=== PATIENT | male | born 1970 | race Caucasian/White ===

== ENCOUNTER 2019-10-16 08:34 | Emergency (ER) | payer BC ==
[2019-10-16 09:22] VITALS: BP 127/81
--- NOTE | 2019-10-16 09:27 | UC ---
Skin Complaint HPI - HPI Summary HPI Summary: 49-year-old male who sustained a minor cat the patient Bite to his right wrist and a scratch to the right shoulder this morning from his own cat. The cat is up-to-date on immunizations, the patient is up-to-date on his tetanus immunization. He stated he was trying to get the cat in a carrier to go to the clinical laboratory technician today. The patient cleansed the wound this morning. - History of Current Complaint Chief Complaint: UCSkin Time Seen by Provider: 10/16/19 08:43 Stated Complaint: CAT BITE, RT WRIST Hx Obtained From: Patient Onset/Duration: Sudden Onset Skin Exposure Onset/Duration: Hours Ago Timing: Constant Onset Severity: Mild Current Severity: Mild Pain Intensity: 1 Location: Hand (Right) Aggravating Factor(s): Nothing Alleviating Factor(s): Nothing Associated Signs & Symptoms: Positive: Negative - Allergy/Home Medications Allergies/Adverse Reactions: Allergies Allergy/AdvReac Type Severity Reaction Status Date / Time Penicillins Allergy Anaphylatic Verified 10/16/19 09:23 Shock Home Medications: Home Medications Ibuprofen TAB* [Motrin TAB* 800 MG] 800 mg PO ONCE PRN 10/16/19 [History Confirmed 10/16/19] PMH/Surg Hx/FS Hx/Imm Hx Previously Healthy: Yes - Surgical History Surgical History: None Surgery Procedure, Year, and Place: DENIES - Family History Known Family History: Positive: Non-Contributory - Social History Lives: With Family Alcohol Use: None Substance Use Type: None Smoking Status (MU): Never Smoked Tobacco - Immunization History Most Recent Tetanus Shot: UNKNOWN Review of Systems All Other Systems Reviewed And Are Negative: Yes Skin: Positive: Other - Small puncture wound to right wrist and small scratch to right shoulder Is Patient Immunocompromised?: No Physical Exam Triage Information Reviewed: Yes Appearance: Well-Appearing, No Pain Distress, Well-Nourished Vital Signs: Initial Vital Signs Temp 98.2 F 10/16/19 09:11 Pulse 60 10/16/19 09:11 Resp 18 10/16/19 09:11 BP 127/81 10/16/19 09:11 Pulse Ox 100 10/16/19 09:11 Vital Signs Reviewed: Yes Musculoskeletal: Positive: Strength Intact, ROM Intact, Other: - Good peripheral pulses, neuro sensation capillary refill, good finger strength to flexion extension against resistance. Neurological Exam: Normal Neurological: Positive: Alert, Muscle Tone Normal Psychological Exam: Normal Skin: Positive: Other - Patient has a small puncture wound to the ulnar side of his right wrist palmar aspect. He has a small scratch to his right shoulder. There is no erythema, bruising, swelling or deformity. No pus drainage. Course/Dx - Course Course Of Treatment: The patient is comfortable here. He washed the wound well this morning when it occurred at 7:30 and also put hydrogen peroxide there. Because he is allergic to penicillins he is going to be started on Bactrim and clindamycin. He is to watch for signs of infection. - Diagnoses Provider Diagnosis: Cat bite of hand Discharge ED - Sign-Out/Discharge Documenting (check all that apply): Patient Departure All imaging exams completed and their final reports reviewed: No Studies - Discharge Plan Condition: Good Disposition: HOME Prescriptions: Clindamycin Cap(NF) [Clindamycin Cap 300 mg Cap(NF)] 300 mg PO TID 7 Days #21 cap Sulfamethox/Trimethoprim DS* [Bactrim DS 800/160 TAB*] 1 tab PO BID 7 Days #14 tab Patient Education Materials: Animal Bite (ED) Referrals: Crow Vasquez MD [Primary Care Provider] - Additional Instructions: Keep the area clean and dry. Take the medicine with food. Definite follow-up with your primary care provider if no improvement in 4 or 5 days or if worsening symptoms such as hot, red, tender, swelling, red streaks up your arm, fever and chills. - Billing Disposition and Condition Condition: GOOD Disposition: Home
== END 2019-10-16 09:48 | disposition home or self-care (01) ==
LOC: UCCORT 08:34
DX: S61.551A Open bite of right wrist, initial encounter (principal); Z88.0 Allergy status to penicillin; W55.01XA Bitten by cat, initial encounter; Y92.9 Unspecified place or not applicable
CPT/HCPCS: 99212; G0463